=== PATIENT | female | born 1950 | race Caucasian/White ===

== ENCOUNTER 2021-12-15 15:22 | Emergency (ER) | payer MEDICARE, OTHER, SELFPAY ==
--- NOTE | 2021-12-15 15:26 | XRR_ITS ---
PROCEDURE INFORMATION: Exam: XR Left Wrist Exam date and time: 12/15/2021 3:39 PM Age: 71 years old Clinical indication: Injury or trauma; Dislocation; Severity not specified; Wrist; Left; Additional info: Possible dislocation TECHNIQUE: Imaging protocol: Radiologic exam of the Left wrist. Views: 3 or more views. COMPARISON: No relevant prior studies available. FINDINGS: Bones/joints: Horizontal impacted fractures through the distal radius with cortical fractures laterally, anteriorly and posteriorly. Radiocarpal arthritis. Arthritis involving the articulation of the distal scaphoid with the multangular bones. Mild thumb CMC erosive primary osteoarthritis. Arthritis between the capitate in the distal row of carpal bones and the more proximal scaphoid and lunate carpal bones. Soft tissues: Normal. XR/XR wrist LT min 3V* [id number] IMPRESSION: 1. Horizontal impacted fractures through the distal radius with cortical fractures laterally, anteriorly and posteriorly. 2. Radiocarpal arthritis. 3. Arthritis involving the articulation of the distal scaphoid with the multangular bones. 4. Mild thumb CMC erosive primary osteoarthritis. 5. Arthritis between the capitate in the distal row of carpal bones and the more proximal scaphoid and lunate carpal bones.
[2021-12-15 15:27] VITALS: BP 145/85; PULSE 75; RESP 16; TEMP 36.6; O2SAT 99
--- NOTE | 2021-12-15 15:41 | ED_ITS ---
HPI - Extremity Problem General: Chief complaint: Extremity Injury, Upper Stated complaint: wrist dislocation Time Seen by Provider: 12/15/21 15:32 Source: patient Mode of arrival: ambulatory Limitations: no limitations History of Present Illness: 71-year-old female presents to the ER today after going to another clinic. Patient reports she fell this morning and landed on her left wrist. Patient reports pain with any movement. She reports swelling and bruising of the left wrist. Patient was seen at [facility] and was told she had broken wrist. Patient presents here with continued pain. Denies any prior injury to his hand however does report significant history of arthritis. Patient reports pain has been tolerable with [id number] medications at this time. Patient denies any numbness or tingling in the left hand. Review of Systems General: Reports: 10 or more systems reviewed and unremarkable except in HPI and below Physical Exam Const: COMMON NORMALS: average body habitus, patient oriented x3, no limitations, healthy appearing, alert and well nourished Resp: COMMON NORMALS: normal respiratory effort EFFORT & INSPECTION: Yes able to speak in complete sentences Cardio: COMMON NORMALS: regular rate and regular rhythm RATE: regular rate RHYTHM: regular rhythm Extremity: NARRATIVE EXTREMITY EXAM: Patient has moderate swelling and mild deformity noted to the left wrist. Patient has tenderness to the distal radius. Patient has pain with any range of motion. There is some mild bruising along the ulna. Neuro: COMMON NORMALS: patient oriented x3 SENSORIUM/ORIENTATION: Yes alert Psych: COMMON NORMALS: mental status grossly normal, Normal thought process present and cooperative THOUGHT PROCESS: Normal thought process present Skin: COMMON NORMALS: no rashes or lesions noted GENERAL SKIN EXAM: no rashes or lesions noted Course ED course: 71-year-old female presents to the ER today for left wrist pain. Patient reports she fell this AM. She presented to [facility] and had x-rays done and was told she had a wrist fracture. Patient came here for imaging and splint. We will get an x-ray at this time to verify. Vital Signs: Vital signs: Vital Signs Temperature 97.8 F 12/15/21 15:27 Pulse Rate 75 12/15/21 15:27 Respiratory Rate 16 12/15/21 15:27 Blood Pressure 145/85 12/15/21 15:27 Pulse Oximetry 99 12/15/21 15:27 MDM - Extremity (Nontraumatic) Medical Decision Making 71-year-old female presents to the ER today for left wrist pain. Patient reports she fell this AM. She presented to [facility] and had x-rays done and was told she had a wrist fracture. Patient came here for imaging and splint. X-ray in the ER here does indicate horizontal impacted fractures through the distal radius with cortical fractures laterally anteriorly and posteriorly. There is no major dislocation or displacement. Patient also has significant arthritis noted. We will place patient in a splint at this time. Recommended rest, ice, elevation. Patient will be given tramadol for pain. If she does not need this I would recommend she alternate Tylenol and Motrin. Patient should follow-up with Ortho next week. A referral has been placed. Return to the ER with any new or worsening symptoms. Patient was given instructions on splint care. Patient verbalized understanding and was in agreement with the treatment plan.. Lab Data Radiology Impressions Wrist X-Ray 12/15/21 15:26 IMPRESSION: 1. Horizontal impacted fractures through the distal radius with cortical fractures laterally, anteriorly and posteriorly. 2. Radiocarpal arthritis. 3. Arthritis involving the articulation of the distal scaphoid with the multangular bones. 4. Mild thumb CMC erosive primary osteoarthritis. 5. Arthritis between the capitate in the distal row of carpal bones and the more proximal scaphoid and lunate carpal bones. Critical Care Time Critical Care Time: Critical Care Time: No Discharge Plan Discharge Patient Disposition: Home Clinical Impression: Distal radius fracture, left Qualifiers: Encounter type: initial encounter Fracture type: closed Fracture morphology: other fracture Qualified Code(s): S52.592A - Other fractures of lower end of left radius, initial encounter for closed fracture Condition: Stable Prescriptions: New tramadol 50 mg tablet 50 mg PO Q8H PRN (Reason: pain) 4 Days Qty: 12 0RF Discharge Orders: Discharge ED (Routine); Ordered 12/15/21 Ordered By: Denise Dunbar Discharge Diet: Usual diet Discharge Activity: Limit activity as instructed Patient Instructions: Opioid Safety Activity Restrictions/Additional Instructions: Rest, ice, elevation recommended. Apply ice to reduce swelling 20 minutes on 20 minutes off. Take tramadol as needed for severe pain. Okay to alternate Ty lenol and Motrin otherwise. Keep splint clean and dry. Follow-up with Ortho next week. Return to the ER with new or worsening symptoms. Coding Level of Care Code ED [facility] for Chg Fwd Exam Detailed
--- NOTE | 2021-12-19 09:04 | DCPLANNER ---
Addendum entered by Silvina King 12/28/21 14:31: Patient had a follow up appointment with ortho - patient did attend appointment. Addendum entered by Silvina King 12/21/21 08:35: Patient has a follow up appointment scheduled for Wednesday, December 22, 2021 at 9:[address] Larios at ortho. Clinic will call patient with appointment information. Original Note: manager photo had message to schedule a follow up appointment for patient with ortho. manager photo sent patients information to the front office staff at ortho. Patients information will be printed and reviewed. Clinic will call patient with appointment information.
== END 2021-12-15 16:26 | disposition home or self-care (01) ==
PROVIDERS: Emergency Provider Physician Assistant
DX: S52.592A Other fractures of lower end of left radius, initial encounter for closed fracture (principal); W18.30XA Fall on same level, unspecified, initial encounter
CPT/HCPCS: 73110; 99283

== ENCOUNTER → 2021-12-22 09:25 | Outpatient (BNVA) | payer MEDICARE, OTHER, SELFPAY | PROVIDERS: Referring Provider Physician Assistant; Visit Provider Student in an Organized Health Care Education/Training Program | DX: S52.592A Other fractures of lower end of left radius, initial encounter for closed fracture (principal); W19.XXXA Unspecified fall, initial encounter | CPT/HCPCS: 73110 ==

== ENCOUNTER 2021-12-22 10:31 | Outpatient (CLI) | payer MEDICARE, OTHER, SELFPAY | END 2021-12-22 10:32 | disposition home or self-care (01) | LOC: SPT 10:33 | PROVIDERS: Visit Provider Student in an Organized Health Care Education/Training Program | DX: S52.502D Unspecified fracture of the lower end of left radius, subsequent encounter for closed fracture with routine healing (principal); X58.XXXD Exposure to other specified factors, subsequent encounter | CPT/HCPCS: 25600; 97760; 99204; L3982 ==

== ENCOUNTER → 2022-01-04 08:07 | Outpatient (BNVA) | payer MEDICARE, OTHER, SELFPAY | PROVIDERS: Visit Provider Student in an Organized Health Care Education/Training Program | DX: S52.592A Other fractures of lower end of left radius, initial encounter for closed fracture (principal); X58.XXXA Exposure to other specified factors, initial encounter | CPT/HCPCS: 73110; 99213 ==

== ENCOUNTER → 2022-01-19 09:04 | Outpatient (BNVA) | payer MEDICARE, OTHER, SELFPAY | PROVIDERS: Visit Provider Student in an Organized Health Care Education/Training Program | DX: X58.XXXA Exposure to other specified factors, initial encounter (principal); S52.592A Other fractures of lower end of left radius, initial encounter for closed fracture | CPT/HCPCS: 99213 ==

== ENCOUNTER → 2022-01-19 09:07 | Outpatient (BNVA) | payer MEDICARE, OTHER, SELFPAY | PROVIDERS: Visit Provider Student in an Organized Health Care Education/Training Program | DX: S52.592A Other fractures of lower end of left radius, initial encounter for closed fracture (principal); X58.XXXA Exposure to other specified factors, initial encounter | CPT/HCPCS: 73110; 99213 ==

== ENCOUNTER 2022-02-06 06:00 | Outpatient (RCR) | payer MEDICARE, OTHER, SELFPAY | END 2022-02-12 23:59 | disposition home or self-care (01) | LOC: WOT 06:00 | PROVIDERS: Visit Provider Student in an Organized Health Care Education/Training Program | DX: S52.502S Unspecified fracture of the lower end of left radius, sequela (principal); X58.XXXS Exposure to other specified factors, sequela | CPT/HCPCS: 97167; 97530; 99213 ==

== ENCOUNTER 2022-02-13 06:00 | Outpatient (RCR) | payer MEDICARE, OTHER, SELFPAY | END 2022-03-14 23:59 | disposition home or self-care (01) | LOC: WOT 06:00 | PROVIDERS: Visit Provider Student in an Organized Health Care Education/Training Program | DX: S52.502S Unspecified fracture of the lower end of left radius, sequela (principal); X58.XXXS Exposure to other specified factors, sequela | CPT/HCPCS: 73110; 97110; 97530; 99213 ==

== ENCOUNTER → 2022-02-13 08:48 | Outpatient (BNVA) | payer MEDICARE, OTHER, SELFPAY | PROVIDERS: Visit Provider Student in an Organized Health Care Education/Training Program | DX: W17.89XA Other fall from one level to another, initial encounter (principal); S52.592A Other fractures of lower end of left radius, initial encounter for closed fracture | CPT/HCPCS: 73110; 99213 ==

== ENCOUNTER 2022-02-13 14:32 | Outpatient (CLI) | payer MEDICARE, OTHER, SELFPAY | END 2022-02-13 14:33 | disposition home or self-care (01) | LOC: SPT 14:33 | PROVIDERS: Visit Provider Student in an Organized Health Care Education/Training Program | DX: Z46.89 Encounter for fitting and adjustment of other specified devices (principal); S52.592D Other fractures of lower end of left radius, subsequent encounter for closed fracture with routine healing; X58.XXXD Exposure to other specified factors, subsequent encounter | CPT/HCPCS: 97760; L3908 ==